=== PATIENT | male | born 1975 | race Caucasian/White ===

== ENCOUNTER 2020-09-11 11:33 | Emergency (ER) | payer BC, SELFPAY ==
--- NOTE | ~2020-09-11 | XR_ITS ---
EXAMINATION: LEFT ANKLE AND LEFT FOOT. CLINICAL INFORMATION: Fall. Question fracture. COMPARISON: None TECHNIQUE: 3 views left foot and 2 views left ankle. FINDINGS: Left ankle: There is an oblique fracture distal fibula with moderate with bimalleolar soft tissue swelling. The ankle mortise and subtalar joint is normal. Left foot: Multiple views reveal no visible fracture involving the left foot. The joint spaces are maintained normal. The soft tissues are normal. XR/XR foot LT 2V IMPRESSION: Oblique minimally displaced fracture distal fibula. Bimalleolar soft tissue swelling slightly greater on the lateral side. Unremarkable left foot exam.
--- NOTE | ~2020-09-11 | XR_ITS ---
EXAMINATION: LEFT ANKLE AND LEFT FOOT. CLINICAL INFORMATION: Fall. Question fracture. COMPARISON: None TECHNIQUE: 3 views left foot and 2 views left ankle. FINDINGS: Left ankle: There is an oblique fracture distal fibula with moderate with bimalleolar soft tissue swelling. The ankle mortise and subtalar joint is normal. Left foot: Multiple views reveal no visible fracture involving the left foot. The joint spaces are maintained normal. The soft tissues are normal. XR/XR ankle LT min 3V IMPRESSION: Oblique minimally displaced fracture distal fibula. Bimalleolar soft tissue swelling slightly greater on the lateral side. Unremarkable left foot exam.
[2020-09-11 14:07] VITALS: BP 121/86; PULSE 76; RESP 18; TEMP 35.7; O2SAT 99; BMI 34.3
[2020-09-11] MEDS: Ketorolac Tromethamine 15 MG/ML VIAL IM (14:20)
--- NOTE | 2020-09-11 14:31 | ED_ITS ---
HPI - Extremity Injury (Lower) General Chief Complaint: Extremity Injury, Lower Stated Complaint: L ANKLE INJ Time Seen by Provider: 09/11/20 13:54 Source: patient Mode of arrival: ambulatory Limitations: no limitations History of Present Illness HPI Narrative: Patient presents to ED for left ankle pain. Patient states yesterday while skateboarding he fell and twisted left ankle. Patient denies hitting head or loss of consciousness. Patient denies any other complaints. MD complaint: ankle injury Related Data Previous Rx's Medication Instructions Recorded ketorolac 10 mg PO Q6H PRN 5 Days #20 tab 09/11/20 Allergies Allergy/AdvReac Type Severity Reaction Status Date / Time CHOCOLATE Allergy Unknown UNKNOWN Uncoded 11/07/19 18:54 DAIRY PRODUCTS Allergy Unknown UNKNOWN Uncoded 11/07/19 18:54 Review of Systems Review of Systems: Yes all other systems are reviewed and are negative Constitutional: Constitutional: Reports as per HPI and Reports no additional constitutional complaints Eyes: Eyes: Reports as per HPI and Reports no additional eye complaints ENT: Reports system reviewed and no additional complaints, except as documented and Reports as per HPI Cardiovascular: Cardiovascular: Reports as per HPI and Reports no additional cardiovascular complaints Respiratory: Respiratory: Reports as per HPI and Reports no additional respiratory complaints Gastrointestinal: Gastrointestinal: Reports as per HPI and Reports no additional gastrointestinal complaints Musculoskeletal: Musculoskeletal: Reports no additional musculoskeletal complaints and Reports as per HPI Neurologic: Reports system reviewed and no additional complaints, except as documented and Reports as per HPI Psychiatric: Psychiatric: Reports no additional psychiatric complaints and Reports as per HPI PMF Past Medical History Surgical History (Updated 09/11/20 @ 14:11 by Roselyn Campbell) Hx of cholecystectomy Social History Social History Advance Directives: Yes Advance Directives Information Provided: Yes Advance Directives on File: No Physical Exam Vital Signs: Vital Signs: Last Vital Signs Temp 98.1 F 09/11/20 15:29 Pulse 64 09/11/20 15:29 Resp 19 09/11/20 15:29 BP 126/87 09/11/20 15:29 Pulse Ox 99 09/11/20 14:07 Body Mass Index 34.3 Const: General: cooperative, healthy appearing, comfortable, no acute distress, well developed, alert and awake Orientation/consciousness: patient oriented x3 HENMT: Head: Yes normal to inspection, Yes No palpable skull fracture present, Yes normocephalic and Yes atraumatic Eyes: General: appearance normal, both eyes and all related structures Neck: Neck: Yes normal visual inspection, Yes full ROM, Yes no lymphadenopathy, Yes no meningeal signs, Yes trachea midline, Yes supple and No tender Chest: Chest palpation & inspection: normal inspection of the chest and normal palpation of entire chest wall Resp: Effort & Inspection: normal respiratory effort and able to speak in complete sentences Auscultation: clear to auscultation bilaterally Cardio: Jugular venous distension: no JVD Heart sounds: S1 normal heart sound present and S2 normal heart sound present GI: Inspection: Yes normal to inspection and No abdominal wall ecchymosis Palpation (GI): Soft to palpation, not firm, nontender, no guarding and not rigid : General: No CVA tenderness and Yes no CVA tenderness Back/Spine/Pelvis: Back: no CVA tenderness, No CVA tenderness and No back tenderness Skin: General skin exam: no rashes or lesions noted and elasticity normal Neuro: General: patient oriented x3, no meningeal signs and CN's II-XI intact bilaterally Cranial nerves: Yes CN's II-XII intact bilaterally Extrem: General: Yes normal to inspection and Yes full ROM Ankle/foot/toe images: 1. Tenderness with ecchymosis and slight swelling. Motor exam is intact, but with pain. Neurovascular exam is intact. Negative for any warmth or redness. Achilles intact. Psych: Appearance: grossly normal, well kempt and not disheveled Course Course Course Narrative: Patient sent for x-ray to rule out fractures. Reevaluation(s) Reevaluation #1: X-ray shows fracture. Patient placed in posterior splint with stirrup and crutches. Patient will be discharged with pain medication Time: 15:44 MDM - Extremity Injury (Lower) MDM Narrative Medical decision making narrative: Fibula fracture Discharge Plan Discharge Clinical Impression: Fibula fracture Patient Disposition: Home, Self-Care Instructions: Leg Fracture (ED) Additional Instructions: X-ray shows oblique distal fibular fracture. He will need follow-up with Orthopedics. Return to the ED immediately for severe pain, bluish black discoloration of toes, swelling, chest pain, shortness of breath, redness, coughing up blood, or any other concerning symptoms. Prescriptions: New ketorolac 10 mg tablet 10 mg PO Q6H PRN (Reason: pain) 5 Days Qty: 20 RF: 0 Referrals: Christiano Castillo MD [Physician] - 2 days (Oblique minimally displaced fracture at the distal fibula) Print Language: Peruvian
[2020-09-11 15:29] VITALS: BP 126/87; PULSE 64; RESP 19; TEMP 36.7
== END 2020-09-11 16:19 | disposition home or self-care (01) ==
PROVIDERS: Emergency Provider Emergency Medicine Emergency Medical Services
DX: S82.402A Unspecified fracture of shaft of left fibula, initial encounter for closed fracture (principal); M25.572 Pain in left ankle and joints of left foot; W01.0XXA Fall on same level from slipping, tripping and stumbling without subsequent striking against object, initial encounter; Y93.9 Activity, unspecified; Y92.480 Sidewalk as the place of occurrence of the external cause; Y99.9 Unspecified external cause status; Z79.899 Other long term (current) drug therapy
CPT/HCPCS: 29515; 73610; 73620; 96372; 99284; J1885

== ENCOUNTER 2020-09-21 10:14 | Outpatient (REF) | payer BC, SELFPAY ==
--- NOTE | ~2020-09-21 | XR_ITS ---
EXAMINATION: XR ANKLE, LEFT CLINICAL INFORMATION: Follow-up fracture. COMPARISON: 3 views 09/21/2020 TECHNIQUE: AP, lateral, and mortise views of the left ankle. FINDINGS: There is an oblique distal fibular fracture with displacement of the left ankle in a cast. The ankle mortise and subtalar joints are normal. XR/XR ankle LT min 3V IMPRESSION: Displaced oblique fracture left ankle is in a cast and unchanged to previous study 09/11/2020. No additional fracture seen.
== END 2020-09-21 10:15 | disposition home or self-care (01) ==
LOC: HO.XRAY 10:14
PROVIDERS: PCP Nurse Practitioner Family; Visit Provider Physician Assistant
DX: S82.832A Other fracture of upper and lower end of left fibula, initial encounter for closed fracture (principal); M25.572 Pain in left ankle and joints of left foot
CPT/HCPCS: 73610

== ENCOUNTER 2020-09-22 07:35 | Day surgery (SDC) | payer BC, SELFPAY ==
[2020-09-22] VITALS (11 sets, daily range): BP systolic 137–158; BP diastolic 89–109; PULSE 69–101; RESP 16–24; TEMP 36.1–36.5; O2SAT 92–100; BMI 34.3
--- NOTE | ~2020-09-22 | FL_ITS ---
EXAMINATION: XR FLUOROSCOPY WITH IMAGES CLINICAL INFORMATION: Fracture left ankle. COMPARISON: Radiographs left ankle 2020 TECHNIQUE: Fluoroscopy performed by Dr. hCristiano Castillo. Fluoroscopy time: 0.1 minutes DAP: 0.0103 mGycm2 Images: 3 FINDINGS: The distal fibular fracture is reduced with compression plate and multiple screws. The hardware is intact. The fracture fragments are in anatomic alignment. The ankle mortise is symmetric. FL/FL guidance in OR IMPRESSION: Status post open reduction internal fixation distal fibular fracture. Hardware intact.
--- NOTE | 2020-09-22 10:05 | HO.ANESPROP2 ---
[facility] Active Problems Active Problems: All Active Problems (Updated 09/21/20 @ 12:32 by Eva Dejesus PA-C) Fracture of distal end of left fibula (Acute) Past Medical History Functional capacity: independent ambulation Surgical History Surgical History Hx of cholecystectomy Social History Social History Patient Tobacco Use Status: Never used Tobacco Second Hand Smoke Exposure: No Are you DNR?: No Advance Directives: No Advance Directives Information Provided: Yes Advance Directives on File: No Current occupational status: employed Current occupation: solution developer - Self Employed. Meds Allergies Allergy/AdvReac Type Severity Reaction Status Date / Time CHOCOLATE Allergy Unknown UNKNOWN Uncoded 11/07/19 18:54 DAIRY PRODUCTS Allergy Unknown UNKNOWN Uncoded 11/07/19 18:54 Home Medications Medication Instructions Recorded Confirmed Last Taken Type acetaminophen 325 mg capsule 325 mg PO QID PRN 09/21/20 Unknown History (Tylenol) ibuprofen 200 mg capsule 200 mg PO Q6H PRN 09/21/20 Unknown History Exam Exam Date and Time: September 22, 2020 1005 Height,Weight and Vital Signs: Height 5 ft 8 in Weight 102.512 kg Last Vital Signs Temp 97.0 F 09/22/20 08:03 Pulse 77 09/22/20 08:03 Resp 16 09/22/20 08:03 BP 137/89 09/22/20 08:03 Pulse Ox 96 09/22/20 08:03 Airway TM Dist: >3cm Neck ROM: Full Heart: RRR Lungs: CTA
--- NOTE | 2020-09-22 10:19 | P.BOP_ITS ---
Brief Operative Note Date of Service: 09/22/20 Pre-op diagnosis: left fibula fracture Post-op diagnosis: same Procedure: ORIF left lateral mal Implants: [place] distal fibular locking plate with one 12mm lag screw Surgeon: Christiano Castillo MD Anesthesia: GETA and regional Was an Housing Management Representative used for this Procedure?: No Estimated blood loss (mL): 5 Tourniquet time (min): 35 IV fluids (mL): 800 Pathology: none sent Condition: stable Disposition: PACU
--- NOTE | 2020-09-22 13:20 | PC.NURSE ---
Patient has crutches and scooter in the car transporting him home.
--- NOTE | 2020-09-24 14:39 | W.PM.OPN ---
Operative Note Operative Note Date of Service: 09/22/20 Narrative: Pre-op diagnosis: left fibula fracture Post-op diagnosis: same Procedure: ORIF left lateral mal Implants: [place] distal fibular locking plate with one 12mm lag screw Surgeon: Christiano Castillo MD Anesthesia: GETA and regional Was an Chalk Extruding Machine Operator used for this Procedure?: No Estimated blood loss (mL): 5 Tourniquet time (min): 35 IV fluids (mL): 800 Pathology: none sent Condition: stable Disposition: PACU Procedure in detail: Patient was brought to the operating room placed supine on the operative table and prepped and draped in standard sterile fashion. Time-out was called after proper site procedure proper surgeon IV antibiotics per weight were administered. I began by exsanguinating the limb and insufflating tourniquet to 300 mm Hg. I then made a standard posterolateral incision over the distal fibula. Full-thickness flaps were developed and the fracture was identified and cleaned using combination of rongeur, irrigation and sharp dissection. I used a lobster claw tenaculum to reduce and then placed 1 lag screw across the fracture using standard AO technique. Once this was done I selected a 10 hole [place] fibular locking plate and this was placed using standard AO technique and biplanar fluoroscopy to ensure the fracture was reduced and the hardware was in appropriate position. Once I was satisfied with the hardware position I assessed the medial clear space with a at external rotation stress test. This was negative and I then irrigated copiously closed with absorbable suture and zana. Patient was placed in sterile dressing and a Cam boot. He was extubated brought to recovery room in stable condition there were no known complications.
== END 2020-09-22 13:21 | disposition home or self-care (01) ==
PROVIDERS: PCP Nurse Practitioner Family; Visit Provider Orthopaedic Surgery
PROC: (CPT 27792; principal; 2020-09-22 09:30)
DX: S82.62XA Displaced fracture of lateral malleolus of left fibula, initial encounter for closed fracture (principal); W01.0XXA Fall on same level from slipping, tripping and stumbling without subsequent striking against object, initial encounter; Y93.51 Activity, roller skating (inline) and skateboarding; Y92.9 Unspecified place or not applicable; Y99.8 Other external cause status
CPT/HCPCS: 27792; C1713; J0690; J1885; J2250; J2405; J3010

== ENCOUNTER 2020-10-05 07:35 | Outpatient (REF) | payer BC, SELFPAY ==
--- NOTE | ~2020-10-05 | XR_ITS ---
EXAMINATION: XR ANKLE, LEFT CLINICAL INFORMATION: Follow-up fracture. COMPARISON: Prior examinations, most recently 09/23/2020. TECHNIQUE: AP, lateral, and mortise views of the left ankle. FINDINGS: Bony alignment and mineralization are normal. There is an orthopedic fixator plate and fixator screws again applied to the distal left fibula, without hardware failure or loosening. The previously seen distal fibular fracture line is now very faint. No definite periosteal callus formation is seen. The ankle mortise is intact. Boehler's angle is normal. No joint effusion is seen. There is no calcaneal spur. The soft tissue planes are unremarkable. There are lateral skin zana. XR/XR ankle LT min 3V IMPRESSION: There is a stable alignment status-post ORIF of a distal left fibular fracture. No hardware failure or loosening is seen. The fracture line is now very faint.
== END 2020-10-05 07:36 | disposition home or self-care (01) ==
LOC: HO.HOSX 07:35
PROVIDERS: Visit Provider Physician Assistant
DX: S82.832D Other fracture of upper and lower end of left fibula, subsequent encounter for closed fracture with routine healing (principal)
CPT/HCPCS: 73610

== ENCOUNTER 2020-11-02 12:11 | Outpatient (REF) | payer BC, SELFPAY ==
--- NOTE | ~2020-11-02 | XR_ITS ---
EXAMINATION: XR ANKLE, LEFT CLINICAL INFORMATION: Pain COMPARISON: Left ankle x-rays October 05, 2020 TECHNIQUE: AP, lateral, and mortise views of the left ankle. FINDINGS: Stable orientation of orthopedic plate and screws through the distal fibula. There is no evidence of hardware failure. A well-defined fracture line is not clearly visualized. There is no focal soft tissue swelling. Interval removal of skin zana. XR/XR ankle LT min 3V IMPRESSION: Stable postsurgical changes of the ankle without evidence for hardware failure.
== END 2020-11-02 12:12 | disposition home or self-care (01) ==
LOC: HO.HOSX 12:11
PROVIDERS: Visit Provider Physician Assistant
DX: S82.832D Other fracture of upper and lower end of left fibula, subsequent encounter for closed fracture with routine healing (principal)
CPT/HCPCS: 73610

== ENCOUNTER 2020-12-14 08:30 | Outpatient (REF) | payer BC, SELFPAY ==
--- NOTE | ~2020-12-14 | XR_ITS ---
EXAMINATION: XR ANKLE, LEFT CLINICAL INFORMATION: Left ankle pain. COMPARISON: 11/02/2020 and studies dating back to 08/12/2020. TECHNIQUE: AP, lateral, and mortise views of the left ankle. FINDINGS: The patient is status post previous sideplate and screw fixation of distal left fibular fracture. No fracture line is identified. Hardware appears intact. There is no evidence of acute fracture or dislocation of the left ankle. Mortise appears intact. A few bony densities are seen about the posterior aspect of the distal tibia. XR/XR ankle LT min 3V IMPRESSION: No acute abnormality of the left ankle identified. Status post previous hardware placement distal left fibula.
== END 2020-12-14 08:31 | disposition home or self-care (01) ==
LOC: HO.HOSX 08:30
PROVIDERS: Visit Provider Physician Assistant
DX: S82.832D Other fracture of upper and lower end of left fibula, subsequent encounter for closed fracture with routine healing (principal)
CPT/HCPCS: 73610